=== PATIENT | female | born 1980 | race Hispanic/Latino ===

== ENCOUNTER 2021-10-04 08:41 | Emergency (ER) | payer OTHER ==
[2021-10-04] MEDS ORDERED: HYDROMORPHONE HCL 1 MG/ML INJ ONE ×3 (08:44→09:40)
[2021-10-04] MEDS ORDERED: NA CHLORIDE 0.9% 2,000 ML ONE (08:44)
--- OUTSIDE RECORDS SUMMARY | 2021-10-04 08:44 | XMS REPORT | Continuity of Care Document ---
:1980 Author Organization [facility] Address [address] [place] [address] Care Team Providers Name Role Phone Lab, Fam Pob I Attending Clinician Unavailable Zarina ROSA Attending Clinician ZARINA Attending Clinician Unavailable Melina PAULINO Attending Clinician Payers Payer Name Policy Type Policy Number Effective Date Expiration Date S ource Problems Condition Condition Condition Status Onset Resolution Last Treating Co mments Source Name Details Category Date Date Treatment Clinician Date PMDD PMDD Disease Active Overview: Univer s (premenstr (premenstr 01-2602/23/19 - ity of ual ual 00:00: PMDD [place] dysphoric dysphoric 00 Medi reed disorder) disorder) Bran ch Dysmenorrh Dysmenorrh Disease Active Overview : Univers ea ea 01-2601/29/19 - ity of 00:00: FSH 4.9, [place] 00 E2 53, Medical TSH Branch normal Female Female Disease Active Univers dyspareuni dyspareuni 01-26 it y of a a 00:00: [place] 00 Medical Branch Endometria Endometria Disease Active Overview : Univers l polyp l polyp 01-26 ity of 00:00: 2018 - an [place] 00 US Medical revealed Branch a somewhat hyperecho ic complex mass in the anterior aspect of the uterus, measuring 1.2 x 1.8 x 1.4 cm. An additiona l hypoechoi c mass was present anteriorl y, which measured 1.1 x 1.2 x 0.9 cm. Both lesions are likely endometri al polyps. 03/30/19 - pelvic US revealed a uterus measuring 9.6 x 5.8 x 6 cm, an ES of 8 mm and normal ovaries. Multiple uterine fibroids measuring 2.8, 1.8, 1.4 cm, and 2.2 cm. Iron Iron Disease Active Overview: Univer s deficiency deficiency 3-13 Added it y of anemia, anemia, 00:00: automatic [place] unspecifie unspecifie 00 ally from Medical d iron d iron request Branch deficiency deficiency for anemia anemia surgery type type [id number] Microscopi Microscopi Disease Active U enedinaers c c 3- [place] of hematuria hematuria 00[place] Major Major Disease Active Univers depressive depressive 2-25 it y of disorder, disorder, 00:[place] single single 00 Medical episode, episode, Branch mild mild Dyslipidem Dyslipidem Disease Active U nivers ia ia 3-06 ity of 00:00: [place] 00 Medical Branch Vitamin D Vitamin D Disease Active Uni vers deficiency deficiency 3-06 it y of 00:00: [place] Medical Branch Obesity Obesity Disease Active Univers (BMI (BMI 3-06 ity of 30-39.9) 30-39.9) 00:00: [place] 00 Medical Branch 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 3-06 ity of 00:00: [place] 00 Medical Branch Iron Iron Disease Active Univers deficiency deficiency 3-06 it y of anemia anemia 00:00: [place] 00 Medical Branch Type 2 Type 2 Disease Active Univers diabetes diabetes 2-28 ity of mellitus mellitus 00:00: [place] without without 00 Medical complicati complicati Br anch on, on, without without long-term long-term current current use of use of insulin insulin Allergies, Adverse Reactions, Alerts Allergy Allergy Status Severity Reaction(s) Onset Inactive Treating Comm ents Source Name Type Date Date Clinician Tubercul Propensi Active Swelling Univ ers in Ppd ty to 2-15 ity of adverse 00:00: [place] reaction 00 Medical s Branch TUBERCUL DRUG Active Swelling Univer s IN PPD 2-15 ity of 00:00: [place] 00 Medical Branch Social History Social Habit Start Date Stop Date Quantity Comments Source Sex Assigned At Universit [facility] of [facility] [place] Tobacco use and 2019-06-30 2019-06-30 Never used Universit y of exposure 00:00:00 00:00:00 [facility] [place] Alcohol intake 2019-06-30 2019-06-30 Current University of 00:00:00 00:00:00 non-drinker of [facility] alcohol Branch (finding) Alcohol Comment 2016-11-29 2016-11-29 socially Universit y of 00:00:00 00:00:00 [facility] [place] Smoking Status Start Date Stop Date Source Never smoker [facility] Medications Ordered Filled Start Stop Current Ordering Indication Dosage Frequency Signature Comments Components Source Medication Medication Date Date Medication? Clinician (SIG) Name Name norgestimat Yes 1{tbl} Take 1 Un lul e-ethinyl 3-25 tablet by ity o f estradiol 00:00: mouth [place] (MONONESSA) 00 daily. Medica l 0.25-35 Branch mg-mcg per tablet norgestimat Yes 1{tbl} Take 1 Un lul e-ethinyl 3-25 tablet by ity o f estradiol 00:00: mouth [place] (MONONESSA) 00 daily. Medica l 0.25-35 Branch mg-mcg per tablet norgestimat 2020- No 1{tbl} Take 1 U nivers e-ethinyl 1-03 03-25 tablet by ity of estradiol 00:00: 00:00 mouth [place] (MONONESSA) 00 :00 daily. Medica l 0.25-35 Branch mg-mcg per tablet medroxyPROG 2020- No 150mg Univ ers ESTERone 06-30 06-03 ity of (DEPO-PROVE 20:45: 20:44 [place] RA) 00 :00 Medical injection Branch 150 mg phentermine Yes 37.5mg Take 37.5 Univers 37.5 mg 9-25 mg by ity of tablet 20:42: mouth [place] 41 daily with Medical breakfast. Branch phentermine Yes 37.5mg Take 37.5 Univers 37.5 mg 9-25 mg by ity of tablet 20:42: mouth [place] 41 daily with Medical breakfast. Branch phentermine Yes 37.5mg Take 37.5 Univers 37.5 mg 5-21 mg by ity of tablet 21:15: mouth [place] 57 daily with Medical breakfast. Branch FLUoxetine Yes [id number] 10mg Take 1 Uni vers (SARAFEM) 5-21 tablet by ity o f 10 mg 00:00: mouth [place] tablet 00 daily. Medical Branch FLUoxetine Yes [id number] 10mg Take 1 Uni vers (SARAFEM) 5-21 tablet by ity o f 10 mg 00:00: mouth [place] tablet 00 daily. Medical Branch FLUoxetine Yes [id number] 10mg Take 1 Uni vers (SARAFEM) 5-21 tablet by ity o f 10 mg 00:00: mouth [place] tablet 00 daily. Medical Branch liraglutide Yes 1.8mg inject 1.8 Univers (VICTOZA 8-21 mg under ity of 3-HARISH) 0.6 00:00: the skin [place] as mg/0.1 mL 00 daily. Medical (18 mg/3 Branch mL) injection liraglutide Yes 1.8mg inject 1.8 Univers (VICTOZA 8-21 mg under ity of 3-HARISH) 0.6 00:00: the skin [place] as mg/0.1 mL 00 daily. Medical (18 mg/3 Branch mL) injection liraglutide Yes 1.8mg inject 1.8 Univers (VICTOZA 8-21 mg under ity of 3-HARISH) 0.6 00:00: the skin [place] as mg/0.1 mL 00 daily. Medical (18 mg/3 Branch mL) injection ergocalcife Yes [id number] Take 1 Univers rol, 2-27 capsule by ity of vitamin d2, 00:00: mouth [place] (VITAMIN 00 twice Medical D2) 50,000 weekly Branch unit with food. capsule ergocalcife Yes [id number] Take 1 Univers rol, 2-27 capsule by ity of vitamin d2, 00:00: mouth [place] (VITAMIN 00 twice Medical D2) 50,000 weekly Branch unit with food. capsule ergocalcife Yes [id number] Take 1 Univers rol, 2-27 capsule by ity of vitamin d2, 00:00: mouth [place] (VITAMIN 00 twice Medical D2) 50,000 weekly Branch unit with food. capsule blood sugar Yes [id number] Check Univers diagnostic 3-06 glucose ity of (BLOOD 00:00: each [place] GLUCOSE 00 morning Medical TEST) strip before Branch breakfast; Diagnosis code E11.9 blood sugar Yes [id number] Check Univers diagnostic 3-06 glucose ity of (BLOOD 00:00: each [place] GLUCOSE 00 morning Medical TEST) strip before Branch breakfast; Diagnosis code E11.9 blood sugar Yes [id number] Check Univers diagnostic 06 glucose ity of (BLOOD 00:00: each [place] GLUCOSE morning Medical TEST) strip before [place] breakfast; Diagnosis code E11.9 Procedures This patient has no known procedures. Encounters Start End Encounter Admission Attending Care Care Encounter Source Date/Time Date/Time Type Type Clinicians Facility Department ID 2020-09-02 2020-09-02 Laboratory Lab, Adc Fam Pob I [facility] 1.2. [id number] Univers 17:54:49 18:14:49 Only Kinza Zamora [facility] [id number] ity [facility] [id number] [place] as Professio [phone] Mo dical nal [address] [place] [address] 2020-09-02 2020-09-02 Outpatient R [facility] [id number] Univers 18:00:00 18:00:00 [id number] [facility] 2020-09-02 2020-09-02 Outpatient R ZARINA [facility] [id number] Univers 18:00:00 18:00:00 [facility] 2019-12-29 2019-12-29 Refill [facility] [id number] Univers 00:00:00 00:00:00 Charly Pierson [id number] i ty of [place] [id number] [place] Profess[place] [phone] Mo dical nal 134 [facility] 2019-05-25 2019-05-25 [facility] [id number] Univers 00:00:00 00:00:00 Charly Pierson [id number] i [place] [id number] [place] Profess[place] [phone] Mo dical nal 134 [facility] Results This patient has no known results.
[2021-10-04] MEDS ORDERED: ONDANSETRON 4 MG/2 ML VIAL ONE ×2 (08:54→09:40)
[2021-10-04 09:17] LABS: Absolute Lymphocytes (CBC) 3.6 K/uL (0.7-4.9); Hematocrit 35.5 % (36.0-45.0); Lymphocytes % 28.8 % (15.3-44.8); MPV 7.5 fL (7.6-11.3); RBC Red Blood Cell Count 4.46 M/uL (3.86-4.86)
[2021-10-04] MEDS ORDERED: TETANUS & DIPHTHERIA TOX,ADULT 0.5 ML VIAL ONE (09:20)
[2021-10-04] MEDS ORDERED: CEFAZOLIN SODIUM 1 GM/VIAL ONE (09:20)
[2021-10-04] MEDS ORDERED: NA CHLORIDE 0.9% 100 ML ONE (09:21)
[2021-10-04 09:22] LABS: Protime INR 0.88
[2021-10-04 09:24] LABS: Urine Blood 3+ (Negative); Urine Glucose Trace (Negative); Urine Protein 2+ (Negative); Urine Specific Gravity >=1.030 (1.005-1.030)
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
[2021-10-04 09:28] LABS: Albumin 3.3 g/dL (3.4-5.0); Bilirubin Direct 0.1 mg/dL (0-0.2); Bilirubin Total 0.7 mg/dL (0.2-1.0); Potassium 3.5 mmol/L (3.5-5.1); Protein, Total 7.5 g/dL (6.4-8.2)
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
[2021-10-04 10:25] LABS: Urine Specific Gravity/Preg >1.030 (1.005-1.030)
[2021-10-04 10:26] VITALS: TEMP 97.9; O2SAT 100
[2021-10-04 10:28] VITALS: BP 141/73
== END 2021-10-04 10:22 | disposition short-term general hospital (02) ==
LOC: ER 08:41
DX: S82.252B Displaced comminuted fracture of shaft of left tibia, initial encounter for open fracture type I or II (principal); S82.451B Displaced comminuted fracture of shaft of right fibula, initial encounter for open fracture type I or II; V43.52XA Car driver injured in collision with other type car in traffic accident, initial encounter; Y92.410 Unspecified street and highway as the place of occurrence of the external cause; Z23 Encounter for immunization
CPT/HCPCS: 96361; 85025; 80048; 36415; 81025; 85610; 80076; 85730; 81003; 71045; 72170; 73590; 90471; 90714; 96375; 96374; 99291; J1170 ×3; J7030; J2405 ×2; J0690; G0390